=== PATIENT | female | born 1975 | race Caucasian/White ===

== ENCOUNTER 2020-07-16 12:10 | Emergency (ER) | payer OTHER ==
[~2020-07-16 12:10] MED LIST: AUGMENTIN 875-1 EACH PO; COLACE 100MG C100 MG PO; CYCLOBENZAPRINE5 MG PO; FLEXERIL 10 MG10 MG PO; LISINOPRIL20 MG PO; NEURONTIN 400400 MG PO; NORCO 5-325 TA1 EACH PO; NORCO 7.5-3251 EACH PO; PERCOCET 5-3251 EACH PO; PRILOSEC OTC20 MG PO
[2020-07-16] MEDS ORDERED: AMOXICILLIN500 M1 PO (15:19)
== END 2020-07-16 16:12 | disposition home or self-care (01) ==
LOC: ER1 12:10
DX: J02.0 Streptococcal pharyngitis (principal); R51.9 Headache, unspecified; Z20.822 Contact with and (suspected) exposure to COVID-19; F17.200 Nicotine dependence, unspecified, uncomplicated; Z88.6 Allergy status to analgesic agent
CPT/HCPCS: 0240U; 71045; 87081; 87880; 99285